=== PATIENT | male | born 1990 | race Two or more races ===

== ENCOUNTER 2022-02-10 17:37 | Emergency (ER) | payer OTHER ==
[~2022-02-10] VITALS: Ht 182.9 cm; Wt 77.1 kg
[~2022-02-10 17:37] MED LIST: SOMA250 MG
[2022-02-10] MEDS ORDERED: AMOX-CLAV 875-1 EACH PO (21:09)
== END 2022-02-10 21:15 | disposition home or self-care (01) ==
LOC: ER 17:37
DX: S01.511A Laceration without foreign body of lip, initial encounter (principal); W54.0XXA Bitten by dog, initial encounter; Y93.89 Activity, other specified; Y92.89 Other specified places as the place of occurrence of the external cause; Y99.9 Unspecified external cause status